=== PATIENT | female | born 1950 | race Caucasian/White ===

== ENCOUNTER → 2020-10-05 | Outpatient (CLI) | payer MEDICARE, OTHER ==
--- NOTE | 2020-10-05 11:56 | RAD ---
Examination: US DPLX VENOUS EXTREMITY LOWER RT History: Right Posterior Knee Pain / Comparison/Correlation: None Findings: Right lower extremity duplex venous ultrasound exam was performed. Compression and augmenta tion are utilized. Right common femoral vein, superficial femoral vein and popliteal vein, proximal profunda femoris vei n, posterior tibial veins, peroneal veins, and great saphenous vein junction are unremarkable with no thrombus identified. There is a right simple popliteal cyst measuring 5 cm x 1.5 cm x 0.8 cm. Impression: No right lower extremity DVT. Right popliteal cyst. Electronically signed by: Ad Ponce MD (10/05/2020 11:53 AM) [id number]
== END ==
LOC: US 11:09
PROVIDERS: ATTEND Family Medicine
DX: M71.21 Synovial cyst of popliteal space [Baker], right knee (principal); M79.89 Other specified soft tissue disorders
CPT/HCPCS: 93971

== ENCOUNTER → 2021-02-02 | Outpatient (CLI) | payer MEDICARE, OTHER ==
[~2021-02-02] MED LIST: BUPR150T21 PO; HYDR-2145 PO; LEVO112T2 PO; vitamin D3; zyrtec
== END ==
LOC: LAB 09:44
PROVIDERS: ATTEND Nurse Anesthetist, Certified Registered
DX: Z01.812 Encounter for preprocedural laboratory examination (principal); Z13.9 Encounter for screening, unspecified; Z20.822 Contact with and (suspected) exposure to COVID-19
CPT/HCPCS: U0003; U0005

== ENCOUNTER → 2021-02-06 | Day surgery (SDC) | payer MEDICARE, OTHER ==
[~2021-02-06] MED LIST changes: +IPRATRPIUM/ALBUTEROL 0.5/2.5MG 3 ML NEBU. NEB PRN; +IV RINGERS SOLUTION,LACTATED 1,000 ML IV SCH; +LIDOCAINE 2% PF 5 ML VIAL. ONE; +MIDAZOLAM HCL PF 2 MG/2 ML VIAL. IV ONE; +ONDANSETRON PF 4 MG/2 ML VIAL. IV PRN; +ONDANSETRON PF 4 MG/2 ML VIAL. ONE; +PROPOFOL 10,000 MCG/ML (20ML) VIAL IV ONE
[2021-02-06 10:39] VITALS: BP 126/58
--- NOTE | 2021-02-08 15:10 | PATHOLOGY ---
[facility] Accession Number: [id number] . 01 Material submitted: . cecum - CECUM POLYP X2. Modifiers: X2 . 01 Clinical history: . SCREENING TREATMENT HISTORY COLONOSCOPY PREVIOUS VISIT: SYNOVIAL CYST OF POPLITEAL SPACE [PEREYRA],RIGHT KNEE . 02 Diagnosis: Colon biopsies, cecal polyp x 2: - Sessile serrated polyps/adenomas. ([facility] 02/08/2021) [facility] 02/08/2021 1458 Local . 02 Comment: There is no high-grade dysplasia or evidence of malignancy. ([facility] 02/08/2021) . 02 Electronically signed: . Karlos Alegre MD, Pathologist NPI- [id number] . 01 Gross description: . The specimen is received in formalin, labeled "Anusha Roche, cecum polyp x2". Received are two segments of pale dickey tissue measuring 0.5 and 0.9 cm in maximum dimensions. The surgical margin of the larger segment is inked and the segment is bisected. The specimen is submitted entirely in cassette A1. ([facility]; 02/07/2021) [facility] 02/07/2021 1623 Local . 02 Pathologist provided ICD-10: D12.0 . 02 CPT . 177687 Specimen Comment: A courtesy copy of this report has been sent to [phone] Specimen Comment: [id number] Specimen Comment: Report sent to / DR ROE Specimen Comment: A duplicate report has been generated due to demographic updates. Performed at: [address], [place], [place] [id number] MD Joey Hill MD Phone: [phone] Performed at: 02 [facility] [address] [place], [place] [id number] MD Karlos Alegre MD Phone: [phone]
== END | disposition home or self-care (01) ==
LOC: SURG 08:41
PROVIDERS: ATTEND Internal Medicine Gastroenterology
DX: Z12.11 Encounter for screening for malignant neoplasm of colon (principal); D12.0 Benign neoplasm of cecum; K63.89 Other specified diseases of intestine; K57.30 Diverticulosis of large intestine without perforation or abscess without bleeding; K64.8 Other hemorrhoids; Z80.0 Family history of malignant neoplasm of digestive organs; I10 Essential (primary) hypertension; E78.00 Pure hypercholesterolemia, unspecified; Z79.899 Other long term (current) drug therapy; Z88.2 Allergy status to sulfonamides; Z88.8 Allergy status to other drugs, medicaments and biological substances; E07.9 Disorder of thyroid, unspecified; Z72.89 Other problems related to lifestyle
CPT/HCPCS: 45385; 88305; J2001; J2405; J2704

== ENCOUNTER → 2021-09-11 | Outpatient (CLI) | payer MEDICARE, OTHER ==
[2021-02-06 10:39] VITALS: BP 126/58
[~2021-09-11] MED LIST changes: -IPRATRPIUM/ALBUTEROL 0.5/2.5MG 3 ML NEBU. NEB PRN; -IV RINGERS SOLUTION,LACTATED 1,000 ML IV SCH; -LIDOCAINE 2% PF 5 ML VIAL. ONE; -MIDAZOLAM HCL PF 2 MG/2 ML VIAL. IV ONE; -ONDANSETRON PF 4 MG/2 ML VIAL. IV PRN; -ONDANSETRON PF 4 MG/2 ML VIAL. ONE; -PROPOFOL 10,000 MCG/ML (20ML) VIAL IV ONE
--- NOTE | 2021-09-11 17:35 | RAD ---
Bone Densitometry History: Osteopenia: Findings: Bone Densitometry was performed with dual photon absorption of the lumbar spine and proximal femurs. Lumbar Spine: Bone density is 1.4-9 g/cm2 for L1-L4. T-score is 2.1. Z-score is 2.9. Right femoral neck: Bone density is 0.71 g/cm2. T-score is -1.9. Z-score is -0.6. IMPRESSION: Osteopenia in the right femoral neck. Normal bone mineral density in the lumbar spine. World Health Organization definition of osteoporosis and osteopenia for women: normal equal s T score at or above -1.0 standard deviations; osteopenia equals T score between -1.0 and -2.5 stand edgar deviations; osteoporosis equals T score at or below -2.5 standard deviations. Electronically signed by: Doretha Be MD (09/11/2021 5:32 PM) [id number]
== END ==
LOC: DXRAD 09:24
PROVIDERS: ATTEND Family Medicine
DX: M85.88 Other specified disorders of bone density and structure, other site (principal); M17.11 Unilateral primary osteoarthritis, right knee; Z82.62 Family history of osteoporosis
CPT/HCPCS: 77080